=== PATIENT | male | born 1970 | race Caucasian/White ===

== ENCOUNTER 2017-08-30 19:45 | Inpatient (IN) | payer SELFPAY ==
[~2017-08-30] VITALS: Ht 167.6 cm; Wt 73.7 kg
[2017-08-30 20:07] LABS: APPEARANCE,URINE Clear (CLEAR); BILIRUBIN,URINE Negative (NEGATIVE); COLOR,URINE Yellow (YELLOW); GLUCOSE, URINE (UA) Negative (NEGATIVE); KETONES,URINE 15 mg/dL (NEGATIVE); LEUKOCYTE ESTERASE ,URINE Negative (NEGATIVE); NITRATE,URINE Negative (NEGATIVE); OCCULT BLOOD,URINE Negative (NEGATIVE); PROTEIN,URINE Negative (NEGATIVE)
[2017-08-30] MEDS ORDERED: SODIUM CHLORIDE 0.9% 1000ML 1,000 ML IV ONE (20:34)
[2017-08-30] MEDS ORDERED: ONDANSETRON HCL MDV 20ML 2 MG/ML VIAL ONE (20:36)
[2017-08-30 21:25] LABS: CREATININE 0.6 mg/dL (0.5-1.5); POTASSIUM 3.9 mmol/L (3.5-5.1)
[2017-08-30 21:28] LABS: INR 1.49 (0.85-1.15); PARTIAL THROMBOPLASTIN TIME 26.1 SEC (26.3-35.5); PROTHROMBIN TIME 15.5 SEC (9.6-11.6)
[2017-08-30 21:29] LABS: BILIRUBIN,TOTAL 2.1 mg/dL (0.2-1.0); TOTAL PROTEIN, SERUM 7.4 g/dL (6.0-8.3)
[2017-08-30 21:53] LABS: BASOPHILS % (AUTO) 0.6 % (0.0-5.0); EOSINOPHILS % (AUTO) 0.1 % (0.0-8.0); HEMATOCRIT 30.8 % (42-54); LYMPHOCYTES % (AUTO) 8.6 % (21.0-51.0); MEAN CORPUSCULAR HEMOGLOBIN 34.3 pg (27.0-33.0); MEAN CORPUSCULAR HGB CONC 35.3 g/dL (32.0-36.0); MEAN CORPUSCULAR VOLUME 97.3 fL (79-99); MONOCYTES % (AUTO) 12.2 % (3.0-13.0); NEUTROPHILS % (AUTO) 78.5 % (40.0-77.0); NUCLEATED RED BLOOD CELLS 0.1 % (0.0-0.19); PLATELET COUNT (AUTO) 70 K/uL (130-400); RED BLOOD CELL COUNT(AUTO) 3.17 MIL/uL (4.50-6.20); RED CELL DISTRIBUTION WIDTH 14.9 % (11.0-15.5); WHITE BLOOD COUNT (AUTO) 4.3 K/uL (4.8-10.8)
[2017-08-30] MEDS ORDERED: FAMOTIDINE/PF 20 MG/2 ML VIAL IV ONE (22:02)
[2017-08-30 22:12] LABS: PLATELET MORPHOLOGY COMMENT DECREASED
[2017-08-30] MEDS ORDERED: [UNRECOGNIZED DRUG - OTHER] IV SCH (22:30)
[2017-08-30] MEDS ORDERED: OCTREOTIDE IV SCH (22:30)
[2017-08-30] MEDS ORDERED: CHLORDIAZEPOXIDE HCL 25 MG CAP PO PRN (23:45)
[2017-08-30] MEDS ORDERED: LORAZEPAM 2 MG/ML 1 ML VIAL IVP PRN (23:45)
[2017-08-30] MEDS ORDERED: ONDANSETRON HCL 4 MG/2 ML VIAL IV PRN (23:45)
[2017-08-31] MEDS ORDERED: LORAZEPAM 1 MG TABLET ONE (00:33)
[2017-08-31] MEDS ORDERED: OCTREOTIDE ACETATE 100 MCG/ML AMP ONE (01:07)
[2017-08-31 03:05] VITALS: BP 127/82
[2017-08-31] MEDS ORDERED: ACETAMINOPHEN 325 MG TAB PO PRN (05:15)
[2017-08-31 07:00] VITALS: BP 121/84
[2017-08-31 07:50] LABS: HEMATOCRIT 30.9 % (42-54); MEAN CORPUSCULAR HEMOGLOBIN 33.8 pg (27.0-33.0); MEAN CORPUSCULAR HGB CONC 34.7 g/dL (32.0-36.0); MEAN CORPUSCULAR VOLUME 97.5 fL (79-99); NUCLEATED RED BLOOD CELLS 0.1 % (0.0-0.19); PLATELET COUNT (AUTO) 85 K/uL (130-400); RED BLOOD CELL COUNT(AUTO) 3.17 MIL/uL (4.50-6.20); RED CELL DISTRIBUTION WIDTH 14.8 % (11.0-15.5); WHITE BLOOD COUNT (AUTO) 5.5 K/uL (4.8-10.8)
[2017-08-31] MEDS ORDERED: FLU VACC QS2017-18 36MOS UP/PF 60 MCG/0.5 ML ML IM SCH (08:00)
[2017-08-31 08:53] LABS: BASOPHILS % (MANUAL) 2 % (0-2); EOSINOPHILS % (MANUAL) 1 % (1-6); LYMPHOCYTES % (MANUAL) 10 % (22-44); MAN.DIFF COMMENT-IMPRESSION MANUAL DIFFERENTIAL; MONOCYTES % (MANUAL) 8 % (2-9); PLATELET MORPHOLOGY COMMENT DECREASED; SEGMENTED NEUTROPHILS % 79 % (40-70)
[2017-08-31] MEDS: MULTIVITAMIN TABLET PO SCH ×3 (09:00→12:09)
[2017-08-31] MEDS: FOLIC ACID 1 MG TABLET PO SCH ×3 (09:00→12:09)
[2017-08-31] MEDS: THIAMINE HCL 100 MG/ML 2ML VIAL IM SCH ×2 (09:25→09:40)
[2017-08-31] MEDS ORDERED: CEFTRIAXONE 1GM/D5W 50ML 50 ML IV SCH (10:00)
[2017-08-31 11:00] VITALS: BP 109/71
[2017-08-31] MEDS: CEFTRIAXONE SODIUM 1 GM IVP SCH (12:00)
[2017-08-31 16:00] VITALS: BP 113/76
[2017-08-31 19:00] VITALS: BP 112/79
[2017-09-01] VITALS (19 sets, daily range): BP systolic 87–155; BP diastolic 58–96
[2017-09-01 05:40] LABS: HEMATOCRIT 29.4 % (42-54); MEAN CORPUSCULAR HEMOGLOBIN 35.7 pg (27.0-33.0); MEAN CORPUSCULAR HGB CONC 36.5 g/dL (32.0-36.0); MEAN CORPUSCULAR VOLUME 97.9 fL (79-99); PLATELET COUNT (AUTO) 91 K/uL (130-400); RED CELL DISTRIBUTION WIDTH 14.6 % (11.0-15.5); WHITE BLOOD COUNT (AUTO) 4.7 K/uL (4.8-10.8)
[2017-09-01 05:50] LABS: CREATININE 0.8 mg/dL (0.5-1.5); POTASSIUM 3.8 mmol/L (3.5-5.1)
[2017-09-01 07:07] LABS: BASOPHILS % (MANUAL) 3 % (0-2); EOSINOPHILS % (MANUAL) 5 % (1-6); LYMPHOCYTES % (MANUAL) 7 % (22-44); MAN.DIFF COMMENT-IMPRESSION MANUAL DIFFERENTIAL; MONOCYTES % (MANUAL) 4 % (2-9); REACTIVE LYMPHOCYTES 1 % (0-0); SEGMENTED NEUTROPHILS % 80 % (40-70)
[2017-09-01 07:08] LABS: PLATELET MORPHOLOGY COMMENT DECREASED
[2017-09-01] MEDS ORDERED: PROPOFOL 10 MG/ML 20ML VIAL IV ONE ×2 (07:35)
[2017-09-01] MEDS: MULTIVITAMIN TABLET PO SCH (09:02)
[2017-09-01] MEDS: FOLIC ACID 1 MG TABLET PO SCH (09:02)
[2017-09-01] MEDS: THIAMINE HCL 100 MG/ML 2ML VIAL IM SCH (10:02)
[2017-09-01] MEDS: CEFTRIAXONE SODIUM 1 GM IVP SCH (12:14)
[2017-09-01] MEDS: PROPRANOLOL HCL 20 MG TAB PO SCH (13:44)
[2017-09-01] MEDS ORDERED: ONDANSETRON HCL MDV 20ML 2 MG/ML VIAL ONE (20:04)
[2017-09-02] MEDS: PROPRANOLOL HCL 20 MG TAB PO SCH ×2 (01:39→13:14)
[2017-09-02 03:20] VITALS: BP 116/72
[2017-09-02 06:13] LABS: HEMATOCRIT 31.1 % (42-54); MEAN CORPUSCULAR HGB CONC 34.6 g/dL (32.0-36.0); MEAN CORPUSCULAR VOLUME 98.1 fL (79-99); NUCLEATED RED BLOOD CELLS 0.1 % (0.0-0.19); PLATELET COUNT (AUTO) 135 K/uL (130-400); RED BLOOD CELL COUNT(AUTO) 3.17 MIL/uL (4.50-6.20); RED CELL DISTRIBUTION WIDTH 14.9 % (11.0-15.5); WHITE BLOOD COUNT (AUTO) 9.6 K/uL (4.8-10.8)
[2017-09-02 06:29] LABS: ALBUMIN 2.8 g/dL (3.5-5.0); BILIRUBIN,TOTAL 2.3 mg/dL (0.2-1.0); CREATININE 0.8 mg/dL (0.5-1.5); POTASSIUM 3.4 mmol/L (3.5-5.1); TOTAL PROTEIN, SERUM 6.9 g/dL (6.0-8.3)
[2017-09-02 06:36] LABS: INR 1.16 (0.85-1.15); PROTHROMBIN TIME 12.1 SEC (9.6-11.6)
[2017-09-02 08:50] LABS: BAND NEUTROPHILS % (MANUAL) 1 % (0-2); EOSINOPHILS % (MANUAL) 2 % (1-6); LYMPHOCYTES % (MANUAL) 8 % (22-44); MONOCYTES % (MANUAL) 8 % (2-9); SEGMENTED NEUTROPHILS % 81 % (40-70)
[2017-09-02 08:51] LABS: MAN.DIFF COMMENT-IMPRESSION MANUAL DIFFERENTIAL; PLATELET MORPHOLOGY COMMENT ADEQUATE
[2017-09-02] MEDS: THIAMINE HCL 100 MG/ML 2ML VIAL IM SCH (09:00)
[2017-09-02] MEDS ORDERED: FAMOTIDINE 20MG TAB 20 MG TAB PO SCH (09:00)
[2017-09-02 09:15] VITALS: BP 126/83
[2017-09-02 12:54] VITALS: BP 106/70
[2017-09-02] MEDS: MULTIVITAMIN TABLET PO SCH (13:10)
[2017-09-02] MEDS: FOLIC ACID 1 MG TABLET PO SCH (13:11)
[2017-09-02] MEDS: CEFTRIAXONE SODIUM 1 GM IVP SCH (13:11)
== END 2017-09-02 15:40 | disposition home or self-care (01) | DRG 378 ==
LOC: EDH 19:45 → EDHIP 19:46 → 4CH 08-31 02:49
PROVIDERS: ADMIT Internal Medicine Nephrology; ATTEND Internal Medicine Nephrology
PROC: 06L38CZ Occlusion of Esophageal Vein with Extraluminal Device, Via Natural or Artificial Opening Endoscopic (ICD-10-PCS; principal; 2017-09-01)
PROC: 3E0234Z Introduction of Serum, Toxoid and Vaccine into Muscle, Percutaneous Approach (ICD-10-PCS; 2017-09-01)
DX: K92.2 Gastrointestinal hemorrhage, unspecified (principal); D61.818 Other pancytopenia; F10.231 Alcohol dependence with withdrawal delirium; I85.10 Secondary esophageal varices without bleeding; K74.60 Unspecified cirrhosis of liver; E66.9 Obesity, unspecified; D50.0 Iron deficiency anemia secondary to blood loss (chronic); Z68.26 Body mass index [BMI] 26.0-26.9, adult; Z23 Encounter for immunization
CPT/HCPCS: 36415; 80048; 80053; 81003; 82105; 82270; 83690; 85025; 85610; 85730; 86850; 86900; 86901; 93005; A4218; G0480; J0696; J2060; J2354; J2704; J3411; J3490; J7030; Q2038

== ENCOUNTER 2020-07-06 22:02 | Emergency (ER) | payer SELFPAY ==
[2020-07-06 22:31] LABS: BASOPHILS % (AUTO) 0.6 % (0.0-5.0); EOSINOPHILS % (AUTO) 0.2 % (0.0-8.0); MEAN CORPUSCULAR HEMOGLOBIN 33.4 pg (27.0-33.0); MEAN CORPUSCULAR HGB CONC 34.7 g/dL (32.0-36.0); MEAN CORPUSCULAR VOLUME 96.3 fL (79-99); MONOCYTES % (AUTO) 14.7 % (3.0-13.0); NEUTROPHILS % (AUTO) 75.1 % (40.0-77.0); PLATELET COUNT (AUTO) 68 K/uL (130-400); RED BLOOD CELL COUNT(AUTO) 3.74 MIL/uL (4.50-6.20); RED CELL DISTRIBUTION WIDTH 14.6 % (11.0-15.5); WHITE BLOOD COUNT (AUTO) 8.9 K/uL (4.8-10.8)
[2020-07-06 22:39] LABS: CREATININE 0.7 mg/dL (0.5-1.5); POTASSIUM 3.2 mmol/L (3.5-5.1)
[2020-07-06 22:44] LABS: ALBUMIN 2.6 g/dL (3.5-5.0); TOTAL PROTEIN, SERUM 8.3 g/dL (6.0-8.3)
[2020-07-06] MEDS ORDERED: DEXAMETHASONE SOD PHOSPHATE 10MG/ML 1ML VIAL ONE (23:27)
[2020-07-06 23:29] LABS: PLATELET MORPHOLOGY COMMENT DECREASED
[2020-07-07 00:03] LABS: AMPHET/METH SCREEN,URINE NEGATIVE (NEGATIVE); BARBITURATE SCREEN, URINE NEGATIVE (NEGATIVE); BENZODIAZEPINES SCREEN,URINE NEGATIVE (NEGATIVE); CANNABINOID SCREEN,URINE POSITIVE (NEGATIVE); COCAINE SCREEN,URINE NEGATIVE (NEGATIVE); OPIATE SCREEN,URINE NEGATIVE (NEGATIVE); PHENCYCLIDINE SCREEN,URINE NEGATIVE (NEGATIVE)
[2020-07-07] MEDS ORDERED: HYDROCODONE/ACETAMINOPHEN 10/325 MG TAB ONE (00:15)
[2020-07-07] MEDS ORDERED: FAMOTIDINE 20MG VIAL IV ONE (00:15)
[2020-07-07 00:32] LABS: APPEARANCE,URINE Clear (CLEAR); BILIRUBIN,URINE Negative (NEGATIVE); COLOR,URINE Yellow (YELLOW); GLUCOSE, URINE (UA) Negative (NEGATIVE); KETONES,URINE Negative (NEGATIVE); LEUKOCYTE ESTERASE ,URINE Negative (NEGATIVE); NITRATE,URINE Negative (NEGATIVE); OCCULT BLOOD,URINE Negative (NEGATIVE); PH,URINE 7.5 (5.0-8.0); PROTEIN,URINE Negative (NEGATIVE)
[2020-07-07] MEDS ORDERED: POTASSIUM BICARB/CIT AC 25 MEQ TABLET.EFF ONE (00:57)
[2020-12-10] MEDS ORDERED: CLIN-141 PO (15:00)
== END 2020-07-07 01:20 | disposition home or self-care (01) ==
LOC: EDH 22:02
DX: S46.012A Strain of muscle(s) and tendon(s) of the rotator cuff of left shoulder, initial encounter (principal); K70.31 Alcoholic cirrhosis of liver with ascites; E87.6 Hypokalemia; E80.6 Other disorders of bilirubin metabolism; F10.10 Alcohol abuse, uncomplicated; X58.XXXA Exposure to other specified factors, initial encounter; Y93.89 Activity, other specified; Y92.89 Other specified places as the place of occurrence of the external cause; Y99.8 Other external cause status
CPT/HCPCS: 36415; 71045; 73030; 80053; 80305; 81003; 85025; 96374; 96375; 99284; J1100; J3490

== ENCOUNTER 2020-12-10 11:40 | Emergency (ER) | payer SELFPAY ==
[2020-12-10 12:29] LABS: BASOPHILS % (AUTO) 1.6 % (0.0-5.0); EOSINOPHILS % (AUTO) 1.8 % (0.0-8.0); HEMATOCRIT 34.5 % (42-54); LYMPHOCYTES % (AUTO) 14.1 % (21.0-51.0); MEAN CORPUSCULAR HEMOGLOBIN 34.3 pg (27.0-33.0); MEAN CORPUSCULAR HGB CONC 34.5 g/dL (32.0-36.0); MEAN CORPUSCULAR VOLUME 99.4 fL (79-99); MONOCYTES % (AUTO) 15.6 % (3.0-13.0); NEUTROPHILS % (AUTO) 66.4 % (40.0-77.0); PLATELET COUNT (AUTO) 37 K/uL (130-400); RED BLOOD CELL COUNT(AUTO) 3.47 MIL/uL (4.50-6.20); RED CELL DISTRIBUTION WIDTH 14.6 % (11.0-15.5); WHITE BLOOD COUNT (AUTO) 3.8 K/uL (4.8-10.8)
[2020-12-10 12:31] VITALS: BP 125/82
[2020-12-10 12:36] LABS: CREATININE 0.7 mg/dL (0.5-1.5); POTASSIUM 3.2 mmol/L (3.5-5.1)
[2020-12-10 12:41] LABS: ALBUMIN 2.6 g/dL (3.5-5.0); BILIRUBIN,TOTAL 2.7 mg/dL (0.2-1.0); CRP QUANTITATIVE 13.4 mg/L (0.00-9.0)
[2020-12-10 12:45] LABS: B-TYPE NATRIURETIC PEPTIDE 9 pg/mL (0-100)
[2020-12-10 12:50] LABS: PLATELET MORPHOLOGY COMMENT MARKED DECREASE
[2020-12-10] MEDS ORDERED: TETANUS/DIPHTHERIA TOXOID [ADULT] 0.5 ML VIAL IM ONE (13:00)
[2020-12-10] MEDS ORDERED: CLINDAMYCIN IVPB 600MG/50ML 50 ML IV SCH (13:00)
[2020-12-10 13:05] LABS: APPEARANCE,URINE Clear (CLEAR); BILIRUBIN,URINE Negative (NEGATIVE); COLOR,URINE Yellow (YELLOW); GLUCOSE, URINE (UA) Negative (NEGATIVE); KETONES,URINE Negative (NEGATIVE); LEUKOCYTE ESTERASE ,URINE Negative (NEGATIVE); NITRATE,URINE Negative (NEGATIVE); OCCULT BLOOD,URINE Negative (NEGATIVE); PH,URINE 6.5 (5.0-8.0); PROTEIN,URINE Negative (NEGATIVE)
[2020-12-10 13:53] VITALS: BP 99/69
[2020-12-10] MEDS ORDERED: LACT10PA5 PO (15:00)
[2020-12-10] MEDS ORDERED: CLIN300C10 PO (15:00)
[2020-12-10 15:20] VITALS: BP 124/72
== END 2020-12-10 15:52 | disposition home or self-care (01) ==
LOC: EDH 11:40
DX: S90.212A Contusion of left great toe with damage to nail, initial encounter (principal); S91.102A Unspecified open wound of left great toe without damage to nail, initial encounter; I10 Essential (primary) hypertension; W20.8XXA Other cause of strike by thrown, projected or falling object, initial encounter; Y93.89 Activity, other specified; Y92.89 Other specified places as the place of occurrence of the external cause; Y99.8 Other external cause status
CPT/HCPCS: 36415; 71045; 73660; 80053; 81003; 82140; 82948; 83605; 83880; 85025; 86140; 90471; 90714; 93005; 96365; 99285; J3490

== ENCOUNTER 2021-04-02 10:08 | Emergency (ER) | payer SELFPAY ==
[~2021-04-02] VITALS: Ht 165.1 cm; Wt 72.6 kg
[~2021-04-02 10:08] MED LIST: CLIN-141 PO; LACT10PA5 PO
[2021-04-02 10:10] VITALS: BP 164/97
[2021-04-02] MEDS ORDERED: FOLI0.8T3 PO (10:49)
[2021-04-02] MEDS ORDERED: LACT10SO5 PO (10:49)
[2021-04-02] MEDS ORDERED: MAGN400T25 PO (10:49)
== END 2021-04-02 10:58 | disposition home or self-care (01) ==
LOC: EDH 10:08
DX: M25.471 Effusion, right ankle (principal); Z79.899 Other long term (current) drug therapy

== ENCOUNTER 2022-01-08 09:45 | Emergency (ER) | payer OTHER ==
[~2022-01-08] VITALS: Ht 167.6 cm; Wt 78.5 kg
[~2022-01-08 09:45] MED LIST changes: +FOLI0.8T3 PO; +LACT10SO5 PO; +MAGN400T25 PO
[2022-01-08 10:14] VITALS: BP 142/85
[2022-01-08] MEDS ORDERED: GENT5DRO32 OP (10:28)
[2022-01-08] MEDS ORDERED: NAPHAOS OD (10:28)
== END 2022-01-08 10:38 | disposition home or self-care (01) ==
LOC: EDH 09:45
DX: H00.016 Hordeolum externum left eye, unspecified eyelid (principal); H11.32 Conjunctival hemorrhage, left eye

== ENCOUNTER 2022-01-28 12:56 | Inpatient (IN) | payer OTHER ==
[2022-01-28] VITALS (36 sets, daily range): BP systolic 79–117; BP diastolic 45–64
[~2022-01-28] VITALS: Ht 165.1 cm; Wt 95.4 kg
[~2022-01-28 12:56] MED LIST changes: +ETOMIDATE 20MG VIAL IVP ONE; +GENT5DRO32 OP; +NAPHAOS OD; +ROCURONIUM BROMIDE 10MG/1ML 5ML VL IV ONE; +SUCCINYLCHOLINE CHLORIDE 20 MG/ML 10 ML VIAL IVP ONE
[2022-01-28 13:19] LABS: HEMATOCRIT 39.4 % (42-54); LYMPHOCYTES % (AUTO) 10.4 % (21.0-51.0); MEAN CORPUSCULAR HEMOGLOBIN 35.6 pg (27.0-33.0); MEAN CORPUSCULAR HGB CONC 33.2 g/dL (32.0-36.0); MEAN CORPUSCULAR VOLUME 107.1 fL (79-99); MONOCYTES % (AUTO) 4.2 % (3.0-13.0); NEUTROPHILS % (AUTO) 83.4 % (40.0-77.0); PLATELET COUNT (AUTO) 39 K/uL (130-400); RED BLOOD CELL COUNT(AUTO) 3.68 MIL/uL (4.50-6.20); RED CELL DISTRIBUTION WIDTH 16.8 % (11.0-15.5)
[2022-01-28 13:36] LABS: ALBUMIN 1.7 g/dL (3.5-5.0); CREATININE 1.7 mg/dL (0.5-1.5); POTASSIUM 3.1 mmol/L (3.5-5.1); TOTAL PROTEIN, SERUM 7.7 g/dL (6.0-8.3)
[2022-01-28] MEDS ORDERED: DEXTROSE 50%-WATER 50 ML DISP.SYRIN IV ONE ×2 (13:37→14:00)
[2022-01-28 13:41] LABS: ABG BASE EXCESS -20.5 mmol/L (-2.0-3.0); ABG HCO3 5.1 mmol/L (21.0-28.0); ABG OXYGEN SATURATION 92.7 % (95.0-99.0); ABG PCO2 < 15 mmHg (35-48)
[2022-01-28 13:58] LABS: B-TYPE NATRIURETIC PEPTIDE 612 pg/mL (0-100)
[2022-01-28] MEDS ORDERED: 0.9%NACL 1000ML 1,845 ML IV ONE (14:00)
[2022-01-28] MEDS ORDERED: ZOSYN 3.375GM +NS 50ML IV SCH ×2 (14:00→16:00)
[2022-01-28] MEDS ORDERED: PANTOPRAZOLE 40 MG/VIAL IVP ONE (14:00)
[2022-01-28] MEDS ORDERED: OCTREOTIDE ACETATE 100 MCG/ML AMP IV SCH (14:00)
[2022-01-28] MEDS ORDERED: SODIUM BICARB 50MEQ 50ML VIAL 50 ML ONE ×2 (14:24→14:26)
[2022-01-28 14:28] LABS: MAGNESIUM 0.9 mg/dL (1.80-2.40)
[2022-01-28] MEDS ORDERED: SODIUM BICARB 50MEQ 50ML VIAL IV ONE (14:30)
[2022-01-28] MEDS: PANTOPRAZOLE 40MG INJ 80 MG in 0.9%NACL 100ML 100 ML IVP SCH ×2 (14:30→18:10)
[2022-01-28 14:31] LABS: INR 2.25 (0.85-1.15); PROTHROMBIN TIME 23.4 SEC (9.6-11.6)
[2022-01-28 14:32] LABS: PARTIAL THROMBOPLASTIN TIME 49.3 SEC (26.3-35.5)
[2022-01-28] MEDS ORDERED: NOREPINEPHRIN 4MG/NS 250ML 250 ML IV ONE (14:40)
[2022-01-28] MEDS ORDERED: SODIUM BICARB 50MEQ 50ML VIAL 100 ML ONE (14:44)
[2022-01-28] MEDS ORDERED: PHENYLEPHRINE HCL 10 MG/ML 1ML VIAL IV ONE (14:47)
[2022-01-28] MEDS ORDERED: ROCURONIUM BROMIDE 10MG/1ML 5ML VL ONE (14:51)
[2022-01-28] MEDS ORDERED: ETOMIDATE 20MG VIAL ONE (14:51)
[2022-01-28] MEDS ORDERED: ONDANSETRON 4MG INJ ONE (14:54)
[2022-01-28] MEDS ORDERED: NOREPINEPHRIN 4MG/NS 250ML 250 ML IV SCH (15:00)
[2022-01-28] MEDS ORDERED: PHENYLEPHRINE HCL 10 MG in 0.9% NACL 250ML 250 ML IV PRN (15:00)
[2022-01-28] MEDS ORDERED: PHYTONADIONE 10 MG in 0.9%NACL 50ML 50 ML IVPB SCH (15:00)
[2022-01-28] MEDS ORDERED: FENTANYL 2500MCG+NS 250ML 250 ML IV ONE (15:10)
[2022-01-28] MEDS ORDERED: ETOMIDATE 20MG VIAL IVP SCH (15:30)
[2022-01-28] MEDS ORDERED: ROCURONIUM BROMIDE 10MG/1ML 5ML VL IVPB ONE (15:30)
[2022-01-28] MEDS ORDERED: FENTANYL 2500MCG+NS 250ML 250 ML IV SCH (15:30)
[2022-01-28] MEDS ORDERED: MIDAZOLAM 100MG-0.9% NS 100ML 100 ML IV SCH (15:30)
[2022-01-28] MEDS ORDERED: THIAMINE HCL 300 MG in 0.9%NACL 50ML 50 ML IV ONE (15:30)
[2022-01-28] MEDS ORDERED: PHARMACY COMMUNICATION MISC SCH ×3 (15:30→19:00)
[2022-01-28] MEDS ORDERED: THIAMINE HCL 100 MG/ML 2ML VIAL IM SCH (15:30)
[2022-01-28] MEDS ORDERED: FENTANYL 2500MCG+NS 250ML IV.SOLN IV SCH (15:30)
[2022-01-28] MEDS ORDERED: FOLIC ACID 5 MG/ML VIAL IV ONE (15:30)
[2022-01-28] MEDS ORDERED: THIAMINE HCL 100 MG/ML 2ML VIAL IV SCH (15:30)
[2022-01-28] MEDS ORDERED: MIDAZOLAM HCL 50 MG in 0.9%NACL 50ML 50 ML IV SCH (15:30)
[2022-01-28] MEDS ORDERED: GLUCAGON 1MG KIT 1 MG ML IM PRN ×2 (15:30→16:30)
[2022-01-28 15:50] LABS: ABG BASE EXCESS -14.6 mmol/L (-2.0-3.0); ABG HCO3 9.7 mmol/L (21.0-28.0); ABG OXYGEN SATURATION 99.3 % (95.0-99.0); ABG PCO2 20 mmHg (35-48)
[2022-01-28] MEDS: SODIUM BICARB 8.4% 50ML SYRING 150 MEQ in DEXTROSE 5%-WATER 1,000 ML IVP SCH ×2 (15:53→23:07)
[2022-01-28] MEDS ORDERED: POTASSIUM CHLORIDE 20MEQ/100ML 100 ML IV PRN (16:00)
[2022-01-28] MEDS ORDERED: MAGNESIUM 2GM PREMIX 50ML 50 ML IV SCH (16:00)
[2022-01-28] MEDS ORDERED: SODIUM BICARB 50MEQ 50ML VIAL IV STA (16:09)
[2022-01-28] MEDS ORDERED: DEXTROSE 50%-WATER 50 ML DISP.SYRIN IV PRN (16:30)
[2022-01-28] MEDS ORDERED: POTASSIUM CHLORIDE 10MEQ/100ML 100 ML IV PRN (16:30)
[2022-01-28] MEDS ORDERED: POTASSIUM CHLORIDE 10% ELIXIR 20 MEQ/15 ML UDCUP PO PRN (16:30)
[2022-01-28] MEDS ORDERED: KCL 20 MEQ ERTAB PO PRN (16:30)
[2022-01-28] MEDS ORDERED: CALCIUM GLUC 1GM 1 GM in 0.9%NACL 100ML 100 ML IV SCH (16:30)
[2022-01-28] MEDS ORDERED: LIDOCAINE HCL-MPF 1% 2ML VIAL IV PRN ×2 (16:30)
[2022-01-28 16:40] LABS: CREATININE 1.3 mg/dL (0.5-1.5)
[2022-01-28 16:58] LABS: POTASSIUM 2.2 mmol/L (3.5-5.1)
[2022-01-28 17:07] LABS: HEMATOCRIT 30.8 % (42-54)
[2022-01-28 17:27] LABS: CREATININE 1.6 mg/dL (0.5-1.5)
[2022-01-28 17:30] LABS: POTASSIUM 2.3 mmol/L (3.5-5.1)
[2022-01-28] MEDS ORDERED: CEFTRIAXONE 1G VIAL ONE (17:40)
[2022-01-28] MEDS: POTASSIUM CHLORIDE 10MEQ/100ML 100 ML IV PRN ×4 (17:56→23:23)
[2022-01-28] MEDS: MAGNESIUM 2GM PREMIX 50ML 50 ML IV PRN ×2 (17:56→19:57)
[2022-01-28] MEDS: M.V.I. IV [ADULT] 10 ML, FOLIC ACID 1 MG, THIAMINE HCL 100 MG in 0.9%NACL 1000ML 1,000 ML IV SCH (17:58)
[2022-01-28] MEDS: MEROPENEM 1 GM VIAL IVP SCH (18:01)
[2022-01-28] MEDS: OCTREOTIDE ACETATE 1,250 MCG in 0.9% NACL 250ML 250 ML IV SCH (18:10)
[2022-01-28] MEDS: PHENYLEPHRINE 100 MG/NS 250ML IV SCH ×2 (18:29)
[2022-01-28] MEDS: NOREPINEPHRIN 8MG/250ML NS PMX 250 ML IV SCH ×2 (18:35→22:22)
[2022-01-28 19:35] LABS: ABG BASE EXCESS -11.6 mmol/L (-2.0-3.0); ABG HCO3 14.5 mmol/L (21.0-28.0); ABG OXYGEN SATURATION 91.7 % (95.0-99.0); ABG PCO2 34 mmHg (35-48)
[2022-01-28] MEDS: LACTULOSE 20 GM/30 ML UDCUP PR SCH (19:41)
[2022-01-28] MEDS: LACTULOSE 20 GM/30 ML UDCUP NG SCH (20:00)
[2022-01-28] MEDS: DEXTROSE 50%-WATER 50 ML DISP.SYRIN IV PRN (20:33)
[2022-01-28] MEDS: 0.9% NACL 500ML IV.SOLN 500 ML IV SCH ×2 (22:30→23:22)
[2022-01-28 22:59] LABS: HEMATOCRIT 32.2 % (42-54)
[2022-01-28 23:13] LABS: CREATININE 1.8 mg/dL (0.5-1.5); MAGNESIUM 1.7 mg/dL (1.80-2.40)
[2022-01-28 23:17] LABS: POTASSIUM 2.2 mmol/L (3.5-5.1)
[2022-01-29] VITALS (92 sets, daily range): BP systolic 69–195; BP diastolic 21–92
[2022-01-29] MEDS: DEXTROSE 50%-WATER 50 ML DISP.SYRIN IV PRN ×3 (00:30→22:22)
[2022-01-29] MEDS: NOREPINEPHRIN 8MG/250ML NS PMX 250 ML IV SCH ×5 (00:47→08:25)
[2022-01-29] MEDS: POTASSIUM CHLORIDE 10MEQ/100ML 100 ML IV PRN (00:48)
[2022-01-29 00:54] LABS: ABG HCO3 10.7 mmol/L (21.0-28.0); ABG OXYGEN SATURATION 95.4 % (95.0-99.0); ABG PCO2 32 mmHg (35-48)
[2022-01-29] MEDS: 0.9% NACL 500ML IV.SOLN 500 ML IV SCH (01:00)
[2022-01-29] MEDS: LACTULOSE 20 GM/30 ML UDCUP NG SCH ×4 (01:56→20:00)
[2022-01-29] MEDS ORDERED: SODIUM CL 4MEQ/ML 30ML 154 MEQ in DEXTROSE 10%-WATER 961.5 ML IV SCH (02:00)
[2022-01-29] MEDS ORDERED: POTASSIUM CHLORIDE 20MEQ/100ML 100 ML IV ONE (02:05)
[2022-01-29] MEDS: PANTOPRAZOLE 40MG INJ 80 MG in 0.9%NACL 100ML 100 ML IVP SCH ×3 (02:33→22:13)
[2022-01-29] MEDS: PHENYLEPHRINE 100 MG/NS 250ML IV SCH ×8 (02:37→22:20)
[2022-01-29] MEDS: MEROPENEM 1 GM VIAL IVP SCH ×2 (03:06→14:08)
[2022-01-29] MEDS: POTASSIUM CHLORIDE 20MEQ/100ML 100 ML IV PRN ×4 (03:16→14:44)
[2022-01-29 04:25] LABS: CARBON DIOXIDE 13 mmol/L (21-32); CHLORIDE 100 mmol/L (101-111); CHOLESTEROL < 50 mg/dL (<200); CREATINE KINASE, TOTAL 199 U/L (21-232); GLOMERULAR FILTR. RATE CALC 37 mL/min (>60); GLUCOSE,RANDOM 118 mg/dL (70-105); HDL CHOLESTEROL 16 mg/dL (29-71); LDL DIRECT 18 mg/dL (0-99); MYOGLOBIN 733 ng/mL (10-92); PHOSPHORUS 6.7 mg/dL (2.5-4.9); POTASSIUM 4.1 mmol/L (3.5-5.1); SODIUM SERUM 140 mmol/L (136-145); TRIGLYCERIDES 59 mg/dL (30-200); UREA NITROGEN, BLOOD 11 mg/dL (7-18)
[2022-01-29] MEDS ORDERED: VASOPRESSIN 20 UNITS in 0.9%NACL 100ML 100 ML IV SCH (05:00)
[2022-01-29] MEDS ORDERED: VASOPRESSIN 20 UNITS/ML 1ML VIAL ONE (05:11)
[2022-01-29 05:24] LABS: BASOPHILS % (AUTO) 0.3 % (0.0-5.0); EOSINOPHILS % (AUTO) 7.6 % (0.0-8.0); HEMATOCRIT 34.9 % (42-54); LYMPHOCYTES % (AUTO) 3.5 % (21.0-51.0); MEAN CORPUSCULAR HGB CONC 31.2 g/dL (32.0-36.0); MEAN CORPUSCULAR VOLUME 115.2 fL (79-99); MONOCYTES % (AUTO) 9.6 % (3.0-13.0); NEUTROPHILS % (AUTO) 66.2 % (40.0-77.0); NUCLEATED RED BLOOD CELLS 1.7 % (0.0-0.19); PLATELET COUNT (AUTO) 20 K/uL (130-400); RED BLOOD CELL COUNT(AUTO) 3.03 MIL/uL (4.50-6.20); RED CELL DISTRIBUTION WIDTH 17.3 % (11.0-15.5); WHITE BLOOD COUNT (AUTO) 6.3 K/uL (4.8-10.8)
[2022-01-29 05:35] LABS: HEMOGLOBIN A1C 4.8 % (4.0-6.0)
[2022-01-29 07:11] LABS: ABG BASE EXCESS -22.3 mmol/L (-2.0-3.0); ABG HCO3 7.5 mmol/L (21.0-28.0); ABG OXYGEN SATURATION 90.9 % (95.0-99.0); ABG PCO2 29 mmHg (35-48)
[2022-01-29] MEDS ORDERED: SODIUM BICARB 50MEQ 50ML VIAL 150 ML ONE (07:22)
[2022-01-29 07:23] LABS: CREATININE 2.2 mg/dL (0.5-1.5)
[2022-01-29 07:25] LABS: POTASSIUM 2.9 mmol/L (3.5-5.1)
[2022-01-29] MEDS ORDERED: SODIUM BICARB 50MEQ 50ML VIAL IVPB SCH (07:30)
[2022-01-29] MEDS ORDERED: PHARMACY COMMUNICATION MISC SCH ×2 (07:30→08:30)
[2022-01-29] MEDS: MAGNESIUM 2GM PREMIX 50ML 50 ML IV PRN (08:08)
[2022-01-29] MEDS: SODIUM BICARB 50MEQ 50ML VIAL 150 MEQ in DEXTROSE 5%-WATER 1,000 ML IV SCH ×3 (08:20→23:44)
[2022-01-29] MEDS: LACTULOSE 20 GM/30 ML UDCUP PR SCH (09:00)
[2022-01-29] MEDS: RIFAXIMIN 550 MG TABLET NG SCH ×2 (09:00→21:00)
[2022-01-29] MEDS: NOREPINEPHRINE BITARTRATE 32 MG in 0.9% NACL 250ML 250 ML IV SCH ×2 (09:22→17:35)
[2022-01-29] MEDS: VASOPRESSIN 40 UNITS in 0.9%NACL 50ML 40 ML IV SCH ×2 (09:33→17:33)
[2022-01-29] MEDS: M.V.I. IV [ADULT] 10 ML, FOLIC ACID 1 MG, THIAMINE HCL 100 MG in 0.9%NACL 1000ML 1,000 ML IV SCH (10:42)
[2022-01-29 11:07] LABS: CREATININE 2.5 mg/dL (0.5-1.5); POTASSIUM 3.7 mmol/L (3.5-5.1)
[2022-01-29] MEDS: DEXTROSE 10% IV SCH (11:45)
[2022-01-29] MEDS: SODIUM CL IV SCH (11:45)
[2022-01-29] MEDS: WATER IV SCH (11:45)
[2022-01-29] MEDS: SODIUM BICARB 50MEQ 50ML VIAL IV SCH (12:04)
[2022-01-29 15:11] LABS: CREATININE 2.8 mg/dL (0.5-1.5); POTASSIUM 3.9 mmol/L (3.5-5.1)
[2022-01-29] MEDS: OCTREOTIDE ACETATE 1,250 MCG in 0.9% NACL 250ML 250 ML IV SCH (17:30)
[2022-01-29 22:37] LABS: POTASSIUM 4.5 mmol/L (3.5-5.1)
[2022-01-30] VITALS (40 sets, daily range): BP systolic 45–191; BP diastolic 15–88
[2022-01-30] MEDS: NOREPINEPHRINE BITARTRATE 32 MG in 0.9% NACL 250ML 250 ML IV SCH ×4 (00:04→20:46)
[2022-01-30] MEDS: DEXTROSE 50%-WATER 50 ML DISP.SYRIN IV PRN ×2 (00:46→17:54)
[2022-01-30] MEDS: LACTULOSE 20 GM/30 ML UDCUP NG SCH ×3 (02:00→14:00)
[2022-01-30] MEDS: MEROPENEM 1 GM VIAL IVP SCH ×2 (02:34→15:21)
[2022-01-30] MEDS ORDERED: PHENYLEPHRINE HCL 10 MG/ML 1ML VIAL IV ONE (03:54)
[2022-01-30] MEDS ORDERED: PHENYLEPHRINE HCL 10 MG/ML 5ML VIAL IV ONE (03:56)
[2022-01-30] MEDS ORDERED: 0.9% NACL 250ML 250 ML ONE (03:58)
[2022-01-30] MEDS: PHENYLEPHRINE 100 MG/NS 250ML IV SCH ×6 (04:03→16:48)
[2022-01-30 05:28] LABS: HEMATOCRIT 28.4 % (42-54); MEAN CORPUSCULAR HEMOGLOBIN 35.8 pg (27.0-33.0); MEAN CORPUSCULAR VOLUME 115.4 fL (79-99); NUCLEATED RED BLOOD CELLS 2.7 % (0.0-0.19); RED BLOOD CELL COUNT(AUTO) 2.46 MIL/uL (4.50-6.20); RED CELL DISTRIBUTION WIDTH 17.7 % (11.0-15.5); WHITE BLOOD COUNT (AUTO) 14.4 K/uL (4.8-10.8)
[2022-01-30 05:35] LABS: PLATELET COUNT (AUTO) 5 K/uL (130-400)
[2022-01-30 05:40] LABS: ALBUMIN 0.7 g/dL (3.5-5.0); CREATININE 3.4 mg/dL (0.5-1.5); POTASSIUM 4.6 mmol/L (3.5-5.1); TOTAL PROTEIN, SERUM 3.4 g/dL (6.0-8.3)
[2022-01-30] MEDS ORDERED: NOREPINEPHRIN 8MG/250ML NS PMX 250 ML IV ONE (06:05)
[2022-01-30 06:26] LABS: ABG HCO3 6.2 mmol/L (21.0-28.0); ABG OXYGEN SATURATION 85.2 % (95.0-99.0); ABG PCO2 23 mmHg (35-48)
[2022-01-30] MEDS ORDERED: NOREPINEPHRINE 8MG/NS 250ML PREMIX IV SCH (06:30)
[2022-01-30] MEDS ORDERED: SODIUM BICARB 50MEQ 50ML VIAL IV SCH ×2 (07:30→10:30)
[2022-01-30] MEDS: SODIUM BICARB 50MEQ 50ML VIAL IV SCH (07:41)
[2022-01-30] MEDS: SODIUM CL IV SCH (08:11)
[2022-01-30] MEDS: DEXTROSE 10% IV SCH (08:11)
[2022-01-30] MEDS: WATER IV SCH (08:11)
[2022-01-30] MEDS: SODIUM BICARB 50MEQ 50ML VIAL 150 MEQ in DEXTROSE 5%-WATER 1,000 ML IV SCH ×2 (08:17→14:48)
[2022-01-30] MEDS: RIFAXIMIN 550 MG TABLET NG SCH ×2 (09:00→20:51)
[2022-01-30] MEDS: M.V.I. IV [ADULT] 10 ML, FOLIC ACID 1 MG, THIAMINE HCL 100 MG in 0.9%NACL 1000ML 1,000 ML IV SCH (09:30)
[2022-01-30 10:03] LABS: ABG BASE EXCESS -20.4 mmol/L (-2.0-3.0); ABG HCO3 7.5 mmol/L (21.0-28.0); ABG OXYGEN SATURATION 91.7 % (95.0-99.0); ABG PCO2 25 mmHg (35-48)
[2022-01-30 10:22] LABS: HEMATOCRIT 25.5 % (42-54); MEAN CORPUSCULAR HEMOGLOBIN 34.9 pg (27.0-33.0); MEAN CORPUSCULAR HGB CONC 29.8 g/dL (32.0-36.0); NUCLEATED RED BLOOD CELLS 4.9 % (0.0-0.19); RED BLOOD CELL COUNT(AUTO) 2.18 MIL/uL (4.50-6.20); RED CELL DISTRIBUTION WIDTH 18.2 % (11.0-15.5)
[2022-01-30 10:32] LABS: CREATININE 3.5 mg/dL (0.5-1.5); MAGNESIUM 2.2 mg/dL (1.80-2.40); POTASSIUM 4.9 mmol/L (3.5-5.1)
[2022-01-30] MEDS ORDERED: COMPOUND IV REFRIGERATED 1 EACH IVSOLN MISC PRN (12:00)
[2022-01-30] MEDS: PANTOPRAZOLE 40MG INJ 80 MG in 0.9%NACL 100ML 100 ML IVP SCH (15:21)
[2022-01-30] MEDS: OCTREOTIDE ACETATE 1,250 MCG in 0.9% NACL 250ML 250 ML IV SCH (18:03)
[2022-01-30] MEDS ORDERED: LACTULOSE 20 GM/30 ML UDCUP PR NR (20:00)
[2022-01-30] MEDS ORDERED: ALBUMIN (HUMAN) 25% 300 ML IV SCH (20:30)
[2022-01-30] MEDS ORDERED: PHYTONADIONE 10 MG in 0.9%NACL 50ML 50 ML IVPB SCH (21:00)
[2022-01-31] MEDS ORDERED: THIAMINE HCL 100 MG/ML 2ML VIAL IVP SCH (09:00)
[2022-01-31] MEDS ORDERED: M.V.I. IV [ADULT] 10 ML, FOLIC ACID 1 MG, THIAMINE HCL 400 MG in 0.9%NACL 1000ML 1,000 ML IV SCH (09:00)
[2022-01-31] MEDS ORDERED: FOLIC ACID 5 MG/ML VIAL IV SCH (11:00)
== END 2022-01-30 23:23 | DRG 871 ==
LOC: EDH 12:56 → EDHIP 12:57 → 2BH 16:25
PROVIDERS: ADMIT Internal Medicine; ATTEND Internal Medicine
PROC: 5A1945Z Respiratory Ventilation, 24-96 Consecutive Hours (ICD-10-PCS; principal; 2022-01-28)
PROC: 0BH17EZ Insertion of Endotracheal Airway into Trachea, Via Natural or Artificial Opening (ICD-10-PCS; 2022-01-28)
PROC: 02HV33Z Insertion of Infusion Device into Superior Vena Cava, Percutaneous Approach (ICD-10-PCS; 2022-01-28)
PROC: 30233R1 Transfusion of Nonautologous Platelets into Peripheral Vein, Percutaneous Approach (ICD-10-PCS; 2022-01-28)
PROC: 30233N1 Transfusion of Nonautologous Red Blood Cells into Peripheral Vein, Percutaneous Approach (ICD-10-PCS; 2022-01-28)
DX: A41.50 Gram-negative sepsis, unspecified (principal); E43 Unspecified severe protein-calorie malnutrition; R65.21 Severe sepsis with septic shock; Z20.822 Contact with and (suspected) exposure to COVID-19; J96.01 Acute respiratory failure with hypoxia; J69.0 Pneumonitis due to inhalation of food and vomit; G93.41 Metabolic encephalopathy; I50.43 Acute on chronic combined systolic (congestive) and diastolic (congestive) heart failure; K65.2 Spontaneous bacterial peritonitis; I85.00 Esophageal varices without bleeding; N17.9 Acute kidney failure, unspecified; D62 Acute posthemorrhagic anemia; D68.4 Acquired coagulation factor deficiency; Z16.24 Resistance to multiple antibiotics; K92.0 Hematemesis; J44.0 Chronic obstructive pulmonary disease with (acute) lower respiratory infection; I11.0 Hypertensive heart disease with heart failure; Z66 Do not resuscitate; K70.31 Alcoholic cirrhosis of liver with ascites; D70.9 Neutropenia, unspecified; E87.6 Hypokalemia; E83.42 Hypomagnesemia; K70.40 Alcoholic hepatic failure without coma; D69.59 Other secondary thrombocytopenia; E11.649 Type 2 diabetes mellitus with hypoglycemia without coma; E83.51 Hypocalcemia; Z68.35 Body mass index [BMI] 35.0-35.9, adult
CPT/HCPCS: 31500; 36415; 36600; 43244; 71045; 74018; 76700; 80048; 80053; 80061; 82010; 82140; 82435; 82550; 82803; 82947; 82948; 83036; 83605; 83735; 83874; 83880; 84100; 84132; 84145; 84295; 84439; 84443; 84484; 85014; 85018; 85025; 85027; 85610; 85651; 85730; 86140; 86850; 86900; 86901; 86927; 87040; 87071; 87077; 87186; 87205; 87635; 87804; 93005; 93306; 93970; 94002; 94003; 99291; C1894; C9113; C9803; G0378; J0330; J0610; J0696; J2185; J2354; J2370; J2405; J2543; J3010; J3411; J3430; J3475; J3480; J3490; J7030; J7040; J7050; J7070; J7131; P9017; P9034; P9046